=== PATIENT | male | born 1990 | race Hispanic/Latino ===

== ENCOUNTER 2018-03-26 13:41 | Emergency (ER) | payer OTHER ==
[2018-03-26 13:46] VITALS: RESP 18; O2SAT 100
--- NOTE | 2018-03-26 14:18 | ED PDOC ---
Lower Extremity Pain/Injury Time Seen by Provider: 03/26/18 13:51 Chief Complaint (Nursing): Lower Extremity Problem/Injury Chief Complaint (Provider): Lower Extremity Problem/Injury History Per: Patient Onset/Duration Of Symptoms: Mins (prior to arrival) Current Symptoms Are (Timing): Still Present Additional Complaint(s): 27 year old male with no medical history presents to the ED for evaluation of right ankle injury. Patient was rock climbing just prior to arrival, fell approximately 6 feet and landed on his right foot. He reports that he felt a "pop" to right ankle and had immediate swelling. Pain is localized to ankle and ranked 6/10. He took no medications prior to arrival for pain. Patient is able to ambulate with a limp. Denies head injury, LOC, or a history of ankle surgery or injury. No other complaints. PMD: none provided - Ankle/Foot Description Of Injury: Fell Past Medical History Reviewed: Historical Data, Nursing Documentation, Vital Signs Vital Signs: Last Vital Signs Temp 97.1 F L 03/26/18 13:43 Pulse 87 03/26/18 13:43 Resp 18 03/26/18 13:43 BP 132/83 03/26/18 13:43 Pulse Ox 100 03/26/18 13:43 - Medical History PMH: No Chronic Diseases - Surgical History Other surgeries: oral procedures - Family History Family History: States: Unknown Family Hx - Social History Current smoker - smoking cessation education provided: No Alcohol: Social Drugs: Cannabis (recreationally) - Home Medications Home Medications: Ambulatory Orders Medication Instructions Recorded Acetaminophen [Acetaminophen 8 650 mg PO Q8 PRN #21 tablet.er 03/26/18 Hour] RX: Ibuprofen [Motrin Tab] 800 mg PO Q8 PRN #21 tab 03/26/18 RX: traMADol [Ultram] 50 mg PO Q6 PRN #12 tab 03/26/18 - Allergies Allergies/Adverse Reactions: Allergies Allergy/AdvReac Type Severity Reaction Status Date / Time No Known Allergies Allergy Verified 03/26/18 13:43 Review of Systems ROS Statement: Except As Marked, All Systems Reviewed And Found Negative Musculoskeletal: Positive for: Foot Pain (right ankle pain) Physical Exam - Reviewed Nursing Documentation Reviewed: Yes Vital Signs Reviewed: Yes - Physical Exam Comments: GENERAL APPEARANCE: Patient is awake, alert, oriented x 3, in no acute distress. Resting comfortably. SKIN: Warm, dry; (-) cyanosis. ENT: Mucus membranes moist. Airway patent, (-) stridor. CHEST AND RESPIRATORY: (-) rales, (-) rhonchi, (-) wheezes; breath sounds equal bilaterally. Respirations even and nonlabored. HEART AND CARDIOVASCULAR: (-) irregularity EXTREMITY: (+) effusion and tenderness to distal fibula and lateral malleolus (+) tenderness to anterior ankle (+) Decreased ROM of ankle secondary to pain (- ) skin break, (-) erythema, (-) ecchymosis (-) palpable deformity (-) distal neurovascular deficit. Foot and calf: (-) tenderness. Achilles tendon painless and intact. Sensation and capillary refill intact. (+) distal pulses. Remainder of lower extremity nontender with FROM. NEURO AND PSYCH: Mental status as above. Gait: limping. Speech: clear. (-) facial asymmetry - ECG O2 Sat by Pulse Oximetry: 100 (RA) Pulse Ox Interpretation: Normal Medical Decision Making Medical Decision Makin:53 Clinical Impression: acute ankle pain s/p fall; sprain vs fracture Initial Plan: --Toradol 30 mg IM --Right ankle x-ray --Re-evaluation 1425 Ankle XR reviewed, (+) talus fracture as read by Zach GUTHRIE. In light of XR findings, consult placed to podiatry. Radiology report for ankle XR follows Date of service: 03/26/2018 PROCEDURE: Right Ankle Radiographs. HISTORY: s/p fall while rockclimbing, joint pain COMPARISON: None available. FINDINGS: BONES: Minimally displaced lateral talar dome fracture/osteochondral defect. JOINTS: Ankle mortise maintained. Talar dome intact SOFT TISSUES: Lateral malleolar soft tissue swelling. OTHER FINDINGS: Ankle joint effusion. IMPRESSION: Minimally displaced lateral talar dome fracture/osteochondral defect. 1430 Case discussed with podiatry resident, Dr Iain Treviño, who is agreeable to evaluation in ED. Podiatry recommends CT lower extremity. CT ordered. [address] 1515 Podiatry at bedside. See consult note. Patient to be placed in posterior short leg splint. Patient provided with crut ches and instructed on crutch walking by podiatry resident. Nonweight bearing. Follow up with Dr Vazquez, ortho, in office within the week per podiatry. 1600 CT reviewed, radiology report follows Date of service: 03/26/2018 PROCEDURE: CT scan of the right ankle HISTORY: Right talar fracture COMPARISON: Right ankle radiographs performed earlier the same day TECHNIQUE: Contiguous axial images of the right ankle were obtained. Coronal and sagittal reformats were generated. Radiation dose: Total exam DLP = 353.2 mGy-cm. This CT exam was performed using one or more of the following dose reduction techniques: Automated exposure control, adjustment of the mA and/or kV according to patient size, and/or use of iterative reconstruction technique. FINDINGS: BONES: Nondisplaced fracture of the posterolateral talar dome. Punctate calcific densities inferior to the lateral malleolus and adjacent to the lateral talar process for which tiny chip/avulsion fractures are not excluded. SOFT TISSUES: Bimalleolar soft tissue swelling. Small ankle joint effusion IMPRESSION: Nondisplaced posterolateral talar dome fracture. Punctate calcific densities inferior to the lateral malleolus and adjacent to the lateral talar process for which tiny chip/avulsion fracture not excluded. NV intact after splint placement. RICE encouraged. On re-evaluation, patient reports improvement of symptoms. On exam, patient remains AAOx3, in no acute distress. Vitals stable. Lab/Diagnostic results d/w the patient in great detail. Diagnosis of acute ankle pain, talus fracture s/p fall d/w the patient. Based on history, exam and diagnostic results, plan will be for outpatient follow up with ortho as directed by podiatry. Patient instructed to follow-up with pmd / referral provided / the clinic in 1- 2 days without fail. Advised to take medication as prescribed. Return to the emergency room at any time for any new or worsening symptoms. Patient states he fully agrees with and understands discharge instructions. States that he agrees with the plan and disposition. Verbalized and repeated discharge instructions and plan. I have given the patient opportunity to ask any additional questions. ------ Scribe Attestation: Documented by Natacha Westfall, acting as a scribe for Tamica Serrano PA-C Provider Scribe Attestation: All medical record entries made by the Scribe were at my direction and personally dictated by me. I have reviewed the chart and agree that the record accurately reflects my personal performance of the history, physical exam, medical decision making, and the department course for this patient. I have also personally directed, reviewed, and agree with the discharge instructions and disposition. Disposition - Clinical Impression Clinical Impression: Ankle pain, Talus fracture, Fall, Ankle effusion - Patient ED Disposition Is Patient to be Admitted: No Counseled Patient/Family Regarding: Studies Performed, Diagnosis, Need For Followup, Rx Given - Disposition Referrals: Rayshawn Roth MD [Staff Provider] - Disposition: Routine/Home Disposition Time: 16:00 Condition: STABLE Additional Instructions: The emergency medical care you received today was directed at your acute symptoms. If you were prescribed any medication, please fill it and take as directed. It may take several days for your symptoms to resolve. Return to the Emergency Department if your symptoms worsen, do not improve, or if you have any other problems. Please contact your doctor in 2 days for re-evaluation and follow up / or call one of the physicians/clinics you have been referred to that are listed on the Patient Visit Information form that is included in your discharge packet. Bring any paperwork you were given at discharge with you along with any medications you are taking to your follow up visit. Our treatment cannot replace ongoing medical care by a primary care provider (PCP) outside of the emergency department. Prescriptions: Acetaminophen [Acetaminophen 8 Hour] 650 mg PO Q8 PRN #21 tablet.er PRN Reason: Pain, Moderate (4-7) RX: Ibuprofen [Motrin Tab] 800 mg PO Q8 PRN #21 tab PRN Reason: Pain, Moderate (4-7) RX: traMADol [Ultram] 50 mg PO Q6 PRN #12 tab PRN Reason: Pain, Severe (8-10) Instructions: Ankle Fracture, How to Use Crutches, Foot Fracture (DC) Forms: [employer] (Upper Sorbian) Print Language: GEORGIAN - POA Present On Arrival: Falls Or Trauma
--- NOTE | 2018-03-26 14:52 | RAD ---
Date of service: 03/26/2018 PROCEDURE: Right Ankle Radiographs. HISTORY: s/p fall while rockclimbing, joint pain COMPARISON: None available. FINDINGS: BONES: Minimally displaced lateral talar dome fracture/osteochondral defect. JOINTS: Ankle mortise maintained. Talar dome intact SOFT TISSUES: Lateral malleolar soft tissue swelling. OTHER FINDINGS: Ankle joint effusion. IMPRESSION: Minimally displaced lateral talar dome fracture/osteochondral defect.
--- NOTE | 2018-03-26 15:08 | CP.PCM.CON ---
History of Present Illness - History of Present Illness History of Present Illness: Consult not e for attending Dr. Vazquez; 27 y/o M Patient with no PMH of Asthma seen ad evaluated in the ED for pain and swelling in the right ankle. Patient states that he was climbing rock wall when he fall down and twisted his right ankle. Patient states that he felt immediately a pop in his right ankle and it got twisted inside. Patient states that he felt pain and using his hand he reduced his right ankle to the normal position again. Patient states that when he did the reduction he felt another pop of his right ankle. Patient states that his ankle then became swollen and the pain now is 3/10 on VAS scale but he couldn't bear weight on his right LE. Patient states that the pain is only when anyone tries to touches his ankle. Patient denies any tingling, numbness or burning sensation in his RLE. He denies any recent F/N/V/C/C/CP/SOB. PMH: None. PSH: None Allergies: NKDA. Social Hx: Denies smoking or Illicit drug use. Use EtOH socially. Review of Systems - Review of Systems Review of Systems: As per HPI - Constitutional Constitutional: As Per HPI Past Patient History - Infectious Disease Hx of Infectious Diseases: None - Past Social History Alcohol: Social Drugs: Cannabis (recreationally) - PSYCHIATRIC Hx Substance Use: No - SURGICAL HISTORY Hx Surgeries: No Meds Allergies/Adverse Reactions: Allergies Allergy/AdvReac Type Severity Reaction Status Date / Time No Known Allergies Allergy Verified 03/26/18 13:43 Physical Exam - Constitutional Appears: Well, Non-toxic, No Acute Distress - Head Exam Head Exam: ATRAUMATIC, NORMOCEPHALIC - Extremities Exam Additional comments: RLE Focused exam: Vasc: DP/PT 2/4, Cap refill < 3 sec to all digits, Temp gradient warm to cool from proximal to distal. Moderate non pitting edema at the right ankle perimalleolar area. Neuro: Gross and protective sensations are intact. Derm: Moderate non pitting edema and bruises at the right ankle perimalleolar area. MSK: Muscle power intact 5/5 to all groups. Pain on palpating the right ankle more anteriorly. Pain with inversion, eversion and dorsiflexion of the R ankle and STJ. - Neurological Exam Neurological exam: Alert, Oriented x3 - Psychiatric Exam Psychiatric exam: Normal Affect, Normal Mood Results - Vital Signs Recent Vital Signs: Last Vital Signs Temp 97.1 F L 03/26/18 13:43 Pulse 87 03/26/18 13:43 Resp 18 03/26/18 13:43 BP 132/83 03/26/18 13:43 Pulse Ox 100 03/26/18 14:33 Assessment & Plan - Assessment and Plan (Free Text) Assessment: 27 y/o M Patient with no PMH of Asthma seen ad evaluated in the ED for displaced fracture of the right lateral talar dome. Plan: Patient seen and evaluated in the ED. Plan discussed in dtails with attending Dr. Vazquez. Charts, labs and vitals reviewed: Afebrile. R ankle X-ray; displaced fracture of the right lateral talar dome. Ordered RLE CT scan: Pending official report Patient RLE put in a posterior splint. Patient to stay NWB to the RLE. Patient to ambulate using crutches, Patient educated crutch use. Patient educated RICE protocol. Patient expressed verbal understanding. Patient to follow up at Dr. Vazquez office upon discharge. Thank you for the consult. - Date & Time Date: 03/26/18 Time: 14:57
--- NOTE | 2018-03-26 16:03 | CT ---
Date of service: 03/26/2018 PROCEDURE: CT scan of the right ankle HISTORY: Right talar fracture COMPARISON: Right ankle radiographs performed earlier the same day TECHNIQUE: Contiguous axial images of the right ankle were obtained. Coronal and sagittal reformats were generated. Radiation dose: Total exam DLP = 353.2 mGy-cm. This CT exam was performed using one or more of the following dose reduction techniques: Automated exposure control, adjustment of the mA and/or kV according to patient size, and/or use of iterative reconstruction technique. FINDINGS: BONES: Nondisplaced fracture of the posterolateral talar dome. Punctate calcific densities inferior to the lateral malleolus and adjacent to the lateral talar process for which tiny chip/avulsion fractures are not excluded. SOFT TISSUES: Bimalleolar soft tissue swelling. Small ankle joint effusion IMPRESSION: Nondisplaced posterolateral talar dome fracture. Punctate calcific densities inferior to the lateral malleolus and adjacent to the lateral talar process for which tiny chip/avulsion fracture not excluded.
[2018-03-26 16:09] VITALS: BP 138/76; PULSE 88; TEMP 97.7
== END 2018-03-26 16:24 | disposition home or self-care (01) ==
LOC: H.ER 13:41
DX: S92.145A Nondisplaced dome fracture of left talus, initial encounter for closed fracture (principal); Y93.31 Activity, mountain climbing, rock climbing and wall climbing; W17.89XA Other fall from one level to another, initial encounter; J45.909 Unspecified asthma, uncomplicated
CPT/HCPCS: 29515; 73610; 73700; 96372; 99283; J1885